=== PATIENT | female | born 1985 | race Caucasian/White ===

== ENCOUNTER 2020-05-30 16:12 | Emergency (ER) | payer OTHER ==
[~2020-05-30 16:12] MED LIST: AZITHROMYCIN250 MG PO; MEDROL 4MG DOSEP4 MG PO; TESSALON PERLE100 MG PO; VENTOLIN HFA IN18 GM INH
[2020-05-30] MEDS ORDERED: NAPROXEN500 MG PO (17:25)
== END 2020-05-30 17:40 | disposition home or self-care (01) ==
LOC: FER 16:12
DX: S80.02XA Contusion of left knee, initial encounter (principal); F17.210 Nicotine dependence, cigarettes, uncomplicated; W19.XXXA Unspecified fall, initial encounter; Y92.009 Unspecified place in unspecified non-institutional (private) residence as the place of occurrence of the external cause
CPT/HCPCS: 73564

== ENCOUNTER 2021-12-22 16:07 | Emergency (ER) | payer OTHER ==
[~2021-12-22 16:07] MED LIST changes: +NAPROXEN500 MG PO
[2021-12-22 17:09] LABS: CORONAVIRUS 2019 SARS-COV-2 POSITIVE (NEGATIVE); INFLUENZA A NAA NEGATIVE (NEGATIVE)
== END 2021-12-22 18:25 | disposition home or self-care (01) ==
LOC: FER 16:07
PROVIDERS: Nurse Practitioner Family
DX: U07.1 COVID-19 (principal); F17.210 Nicotine dependence, cigarettes, uncomplicated; Z28.310 Unvaccinated for COVID-19; Z88.0 Allergy status to penicillin
CPT/HCPCS: 71045; 87880; U0002